=== PATIENT | male | born 1955 | race Caucasian/White ===

== ENCOUNTER → 2023-07-02 11:47 | Outpatient (CLI) | payer MEDICARE, SELFPAY ==
--- NOTE | 2023-07-02 11:52 | DI.RAD.S_ITS ---
PROCEDURE: XR LUMBAR SPINE 2-3V INDICATIONS: LOW BACK PAIN TECHNIQUE: 4 views of the lumbar spine were acquired. COMPARISON: None. FINDINGS: Bones: 5 ats-xbb-afabysv vertebrae are present. Slight dextroconvex curvature of the lumbar spine centered at L4. Minimal anterolisthesis of L4 on L5 of approximately 2 mm. Mild multilevel degenerative changes of the spine with osteophytosis, disc height loss and facet arthropathy, worse at L4-5. No vertebral body compression fractures. No suspicious bony lesions. Soft tissues: Overlying bowel gas pattern is normal. No suspicious soft tissue calcifications. Calcification of the abdominal aorta IMPRESSION: 1. No acute bony abnormality. 2. Mild multilevel degenerative changes of the lumbar spine, worse at L4-L5. Dictated by: Nicolas Bryan M.D. on 07/02/2023 at 17:53 Approved by: Nicolas Bryan M.D. on 07/02/2023 at 17:55
--- NOTE | 2023-07-02 11:52 | DI.RAD.S_ITS ---
P pole ROCEDURE: XR CHEST 2V INDICATIONS: COUGH TECHNIQUE: 2 views of the chest were acquired. COMPARISON: None. FINDINGS: Surgical changes and devices: None. Lungs and pleura: Lungs are clear. No pleural effusions or pneumothorax. Mediastinum: Mediastinal contours are normal. Heart size is normal. Bones and chest wall: No suspicious bony abnormalities. Soft tissues appear unremarkable. Degenerative changes of the thoracic spine. IMPRESSION: No acute cardiopulmonary process. Dictated by: Nicolas Bryan M.D. on 07/02/2023 at 17:48 Approved by: Nicolas Bryan M.D. on 07/02/2023 at 17:53
== END ==
LOC: RAD 11:51
PROVIDERS: PCP Internal Medicine; Referring Provider Internal Medicine; Visit Provider Internal Medicine
DX: M47.816 Spondylosis without myelopathy or radiculopathy, lumbar region (principal); R05.9 Cough, unspecified; M54.50 Low back pain, unspecified
CPT/HCPCS: 71046; 72100

== ENCOUNTER 2024-09-28 09:56 | Day surgery (SDC) | payer OTHER, SELFPAY ==
[2024-09-28 10:13] VITALS: BP 163/82; PULSE 68; RESP 16; TEMP 36.4; O2SAT 98
--- NOTE | 2024-09-28 10:15 | P.HP_ITS ---
History of Present Illness History of Present Illness Date Patient Seen: 09/28/24 Chief complaint: Screening Colonoscopy Narrative: For screening colonoscopy [facility] Medical History (Updated 09/09/23 @ 11:56 by Jose Mathews MD) BPH w/o urinary obs/LUTS Kidney stones High blood pressure Diabetes insipidus Surgical History (Updated 09/09/23 @ 11:21 by Lynn Simmons MA) H/O vasectomy Family History (Updated 09/09/23 @ 11:23 by Lynn Simmons MA) Father Diabetes mellitus Mother Heart attack Other Dementia Hearing impaired Social History (Updated 09/09/23 @ 11:27 by Lynn Simmons MA) marital status: unmarried,living together number of children: 1 household members: significant other occupational status: employed Previous occupational history: [employer] Tobacco: How many years used: 42 Smokeless tobacco user: other quit status: quit date established alcohol intake: former caffeine: Yes Type(s) of exercise: other frequency: 5-6 times per week Meds Home Medications and Allergies Home Medications Medication Instructions Recorded Confirmed Type aspirin 81 mg tablet,delayed 81 mg PO DAILY #1 tab 09/09/23 09/28/24 Rx release cholecalciferol (vitamin D3) 50 50 mcg PO DAILY #1 cap 09/09/23 09/09/23 Rx mcg (2,000 unit) capsule cholestyramine (with sugar) 4 gram 4 g PO DAILY #348.6 grams 09/09/23 09/09/23 Rx oral powder hydrochlorothiazide 12.5 mg capsule 12.5 mg PO DAILY #1 cap 09/09/23 09/28/24 Rx mecobalamin (vitamin B12) 1,000 1,000 mcg sublingual DAILY #1 tab 09/09/23 09/09/23 Rx mcg disintegrating tablet,sublingual metformin 500 mg tablet 500 mg PO DAILY #1 tab 09/09/23 09/28/24 Rx lisinopril 5 mg tablet 5 mg PO DAILY 09/28/24 09/28/24 History Allergies Allergy/AdvReac Type Severity Reaction Status Date / Time No Known Drug Allergies Allergy Verified 09/28/24 10:10 Exam Narrative Exam Narrative: Oropharynx free of lesions Chest clear to auscultation percussion Cardiac exam reveals no S3 or murmur Assessment & Plan Assessment & Plan narrative: For screening colonoscopy. Risks, benefits, all alternatives have been explained. Time-Based Coding :: [TOTAL MINUTES] spent with patient and on the chart (including review of chart, obtaining history, exam, reviewing outside data, placing orders, documenting exam and treatment plan, and counseling patient) on [DATE]. [employer] Document charge(s): No
--- NOTE | 2024-09-28 10:16 | PM.OP.COLON ---
Operative Date/Time/Diagnoses Date of procedure: 09/28/24 Pre-op diagnosis: See indication and findings Procedure & Clinicians Study performed: Colonoscopy Same procedure as scheduled: Yes Indications: Screening Surgeon: Elizabeth Max Procedure Notes Procedure in detail: After informed consent was obtained the patient was placed in left lateral decubitus position. Video colonoscope was placed in the rectum slowly advanced cecum. Preparation was good. On slow withdrawal mucosa was carefully examined. The scope was removed. The patient tolerated procedure well. Blood loss none Complications none Sedation mac Findings 1. Normal colonoscopy to cecum Patient should have follow-up colonoscopy in 10 years
[2024-09-28] MEDS: LACTATED RINGERS 1,000 ML 84 ML IV (10:23)
[2024-09-28 11:02] VITALS: BP 102/68; PULSE 68; RESP 16; TEMP 36.2; O2SAT 95
[2024-09-28 11:09] VITALS: BP 105/68; PULSE 63; RESP 14; TEMP 36.2; O2SAT 93
[2024-09-28 11:19] VITALS: BP 101/67; PULSE 59; RESP 15; TEMP 36.3; O2SAT 95
[2024-09-28 11:24] VITALS: BP 110/70; PULSE 59; RESP 18; O2SAT 97
== END 2024-09-28 11:36 | disposition home or self-care (01) ==
PROVIDERS: PCP Internal Medicine; Referring Provider Internal Medicine Gastroenterology; Visit Provider Internal Medicine Gastroenterology
PROC: 0DJD8ZZ Inspection of Lower Intestinal Tract, Via Natural or Artificial Opening Endoscopic (ICD-10-PCS; CPT 45378; principal; 2024-09-28 11:00)
DX: Z12.11 Encounter for screening for malignant neoplasm of colon (principal)
CPT/HCPCS: G0121; J2704

== ENCOUNTER → 2024-11-08 09:50 | Outpatient (CLI) | payer OTHER, SELFPAY ==
--- NOTE | 2024-11-08 10:04 | EKG_ITS ---
[facility] [address] [place] [address] Test Date: 2024-11-08 Pat Name: Gallo Crawford Department: [facility] Room: Gender: Male Body Joiner: bryan : 1955 Requested By: Order Number: [id number] Reading MD: Thomas Mcduffie Measurements Intervals [place] Rate: 58 P: 73 AL: 158 QRS: 37 QRSD: 88 T: 44 QT: 392 QTc: 384 Interpretive Statements Sinus bradycardia Electronically Signed On 11-10-2024 17:23:09 PDT by Thomas Mcduffie
== END ==
PROVIDERS: PCP Internal Medicine; Referring Provider Internal Medicine; Visit Provider Internal Medicine
DX: I10 Essential (primary) hypertension (principal)
CPT/HCPCS: 93005

== ENCOUNTER → 2025-05-17 11:51 | Outpatient (CLI) | payer OTHER, SELFPAY ==
--- NOTE | 2025-05-17 11:52 | DI.MRI.S_ITS ---
PROCEDURE: MR FOOT RT WO CON INDICATIONS: RT FOOT PAIN TECHNIQUE: Multiphasic, multisequence MRI of the forefoot was performed, without intravenous contrast administration. COMPARISON: None. FINDINGS: Do Image quality: Excellent. Bones and joints: No bone marrow contusions or metatarsal stress fractures. Ukqs-[id number]-zyhfolpa degenerative changes at the 1st metatarsophalangeal joint, and throughout the interphalangeal joints of the toes, and at the 1st and 2nd tarsometatarsal joints. Hallux sesamoids are normally aligned. Mild degenerative subchondral edema and cystic changes in the medial hallux sesamoid. Cystic changes versus chronic osseous erosion at the lateral aspect of the 5th metatarsal head. No intraosseous lesions. Soft tissues: Mild nonspecific subcutaneous edema at the dorsal lateral aspect of the forefoot. Small amount of fluid is seen along the distal peroneus brevis and longus tendons adjacent to the cuboid. Trace tenosynovitis of the 5th extensor tendon at the level of the metatarsophalangeal joint and likely the 2nd through 4th extensor tendons at the level of the metatarsal necks. Soft tissue prominence is seen at the plantar aspect of the interspace between the 2nd and 3rd metatarsal heads measuring approximately the 8 x 4 x 8 mm. The visualized plantar foot muscles demonstrate normal signal and bulk. Visualized flexor and extensor tendons otherwise appear intact. The principal Lisfranc ligament appears intact.. Sagittal images demonstrate no evidence for plantar plate tears. IMPRESSION: 1. 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 2. Soft tissue prominence at the interspace between the 2nd and 3rd metatarsal heads measuring up to 8 mm is suspicious for an interdigital Escudero neuroma. 3. Mild tenosynovitis of the 2nd through 5th extensor tendons at the level of the distal metatarsals. 4. Mild peroneus brevis and longus tenosynovitis. Approved by: Shekhar Nagy M.D. on 05/18/2025 at 9:06
== END ==
LOC: MRI 11:52
PROVIDERS: PCP Internal Medicine; Referring Provider Podiatrist; Visit Provider Podiatrist
DX: M20.5X1 Other deformities of toe(s) (acquired), right foot (principal); M19.071 Primary osteoarthritis, right ankle and foot; M65.971 Unspecified synovitis and tenosynovitis, right ankle and foot
CPT/HCPCS: 73718